=== PATIENT | male | born 1950 | race Caucasian/White ===

== ENCOUNTER 2016-05-08 22:59 | Inpatient (IN) | payer OTHER ==
[2016-05-08] MEDS ORDERED: DUONEB INH ONE ×3 (23:12)
[2016-05-09] VITALS (7 sets, daily range): BP systolic 157–181; RESP 18–24; TEMP 98.1–98.4; Wt 107.0 kg
[2016-05-09] MEDS ORDERED: ACETAMINOPHEN 325 MG TAB PO PRN (00:40)
[2016-05-09] MEDS ORDERED: ALU/MAG/SIM 30 ML UDC PO PRN (00:40)
[2016-05-09] MEDS ORDERED: BISACODYL 10 MG SUPP RECTAL PRN (00:40)
[2016-05-09] MEDS ORDERED: SALINE FLUSH 10 ML FLUSH PRN (00:40)
[2016-05-09] MEDS ORDERED: BISACODYL EC 5 MG TAB PO PRN (00:40)
[2016-05-09] MEDS ORDERED: MAG HYDROX 30 ML UDC PO PRN (00:40)
[2016-05-09] MEDS: LACT RINGERS 1,000 ML IV SCH ×2 (04:28→16:39)
[2016-05-09] MEDS: METHYLPRED SOD SUCC 125 MG/2 ML VIAL IV SCH ×4 (05:51→23:36)
[2016-05-09] MEDS: SODIUM CHLORIDE 0.9% FLUSH BAG 500 ML IV SCH (05:53)
[2016-05-09] MEDS: NEB-XOPENEX 1.25 MG/3 ML INH SCH ×5 (07:08→23:03)
[2016-05-09] MEDS: NEB-ATROVENT INH SCH ×5 (07:08→23:03)
[2016-05-09] MEDS: LEVOFLOXACIN 750 MG/150 ML 150 ML IV SCH (08:35)
[2016-05-09] MEDS: FAMOTIDINE 20 MG INJ IV SCH ×2 (08:35→21:56)
[2016-05-09] MEDS: SALINE FLUSH 10 ML FLUSH SCH ×2 (08:35→21:55)
[2016-05-09] MEDS: ENOXAPARIN 40 MG/0.4 ML SYR SUBQ SCH (08:36)
[2016-05-09] MEDS: BENZONATATE 100 MG CAP PO PRN ×2 (11:28→22:05)
[2016-05-09] MEDS: NEB-BROVANA 15 MCG/2 ML INH SCH ×2 (12:00→19:39)
[2016-05-09] MEDS: NEB-BUDESONIDE 0.5 MG INH SCH ×2 (12:00→19:39)
[2016-05-09] MEDS: GUAIFENESIN ER 600 MG TABCR PO SCH ×2 (12:45→21:58)
[2016-05-09] MEDS: BISOPROLOL 5 MG TAB PO SCH (12:45)
[2016-05-09] MEDS: NEB-NACL 3% 4 ML NEBU INH SCH ×2 (19:39→23:03)
[2016-05-09] MEDS: AZELASTINE NASAL 30 ML BTL NARE EACH SCH (21:00)
[2016-05-09] MEDS: FLUTICASONE 0.05% NA BTL NARE EACH SCH (21:53)
[2016-05-09] MEDS: MONTELUKAST 10 MG TAB PO SCH (21:57)
[2016-05-09] MEDS: CEPACOL LOZENGE PO PRN (22:05)
[2016-05-10] VITALS (8 sets, daily range): BP systolic 133–163; RESP 16–20; TEMP 97.5–99
[2016-05-10] MEDS: NEB-ATROVENT INH SCH ×6 (02:42→22:34)
[2016-05-10] MEDS: NEB-XOPENEX 1.25 MG/3 ML INH SCH ×6 (02:42→22:34)
[2016-05-10] MEDS: LACT RINGERS 1,000 ML IV SCH (03:39)
[2016-05-10] MEDS: METHYLPRED SOD SUCC 125 MG/2 ML VIAL IV SCH (05:53)
[2016-05-10] MEDS: SODIUM CHLORIDE 0.9% FLUSH BAG 500 ML IV SCH (05:53)
[2016-05-10] MEDS: NEB-NACL 3% 4 ML NEBU INH SCH ×4 (07:26→22:34)
[2016-05-10] MEDS: NEB-BROVANA 15 MCG/2 ML INH SCH ×2 (07:26→18:25)
[2016-05-10] MEDS: NEB-BUDESONIDE 0.5 MG INH SCH ×2 (07:26→18:26)
[2016-05-10] MEDS: FLUTICASONE 0.05% NA BTL NARE EACH SCH ×2 (08:43→20:30)
[2016-05-10] MEDS: AZELASTINE NASAL 30 ML BTL NARE EACH SCH ×2 (08:43→20:29)
[2016-05-10] MEDS: SALINE FLUSH 10 ML FLUSH SCH ×2 (08:44→20:32)
[2016-05-10] MEDS: LEVOFLOXACIN 750 MG/150 ML 150 ML IV SCH (08:44)
[2016-05-10] MEDS: FAMOTIDINE 20 MG INJ IV SCH ×2 (08:44→20:31)
[2016-05-10] MEDS: ENOXAPARIN 40 MG/0.4 ML SYR SUBQ SCH (08:44)
[2016-05-10] MEDS: GUAIFENESIN ER 600 MG TABCR PO SCH ×2 (08:45→20:31)
[2016-05-10] MEDS: BISOPROLOL 5 MG TAB PO SCH (08:46)
[2016-05-10] MEDS: CETIRIZINE 10 MG TAB PO SCH (08:46)
[2016-05-10] MEDS ORDERED: BISOPROLOL 5 MG TAB PO ONE (11:00)
[2016-05-10] MEDS ORDERED: MISSING DOSE XX ONE ×2 (11:45→13:10)
[2016-05-10] MEDS: CEPACOL LOZENGE PO PRN ×2 (13:14→20:31)
[2016-05-10] MEDS: BENZONATATE 100 MG CAP PO PRN ×2 (13:14→20:31)
[2016-05-10] MEDS: METHYLPRED SOD SUCC 40 MG VIAL IV SCH ×2 (16:39→23:42)
[2016-05-10] MEDS: MONTELUKAST 10 MG TAB PO SCH (20:31)
[2016-05-11] VITALS (9 sets, daily range): BP systolic 130–154; RESP 18–20; TEMP 97.5–98.5
[2016-05-11] MEDS: CEPACOL LOZENGE PO PRN ×2 (00:36→10:24)
[2016-05-11] MEDS: NEB-XOPENEX 1.25 MG/3 ML INH SCH ×6 (03:26→22:14)
[2016-05-11] MEDS: NEB-ATROVENT INH SCH ×6 (03:26→22:14)
[2016-05-11] MEDS: NEB-BROVANA 15 MCG/2 ML INH SCH ×2 (06:33→18:23)
[2016-05-11] MEDS: NEB-NACL 3% 4 ML NEBU INH SCH ×4 (06:34→22:14)
[2016-05-11] MEDS: NEB-BUDESONIDE 0.5 MG INH SCH ×2 (06:34→18:23)
[2016-05-11] MEDS ORDERED: MISSING DOSE XX ONE (07:35)
[2016-05-11] MEDS: FLUTICASONE 0.05% NA BTL NARE EACH SCH ×2 (09:17→20:49)
[2016-05-11] MEDS: SODIUM CHLORIDE 0.9% FLUSH BAG 500 ML IV SCH ×2 (09:17)
[2016-05-11] MEDS: AZELASTINE NASAL 30 ML BTL NARE EACH SCH ×2 (09:17→20:49)
[2016-05-11] MEDS: LEVOFLOXACIN 750 MG/150 ML 150 ML IV SCH (09:18)
[2016-05-11] MEDS: FAMOTIDINE 20 MG INJ IV SCH (09:19)
[2016-05-11] MEDS: METHYLPRED SOD SUCC 40 MG VIAL IV SCH ×2 (09:19→16:36)
[2016-05-11] MEDS: SALINE FLUSH 10 ML FLUSH SCH ×2 (09:19→20:51)
[2016-05-11] MEDS: ENOXAPARIN 40 MG/0.4 ML SYR SUBQ SCH (09:20)
[2016-05-11] MEDS: CETIRIZINE 10 MG TAB PO SCH (09:20)
[2016-05-11] MEDS: GUAIFENESIN ER 600 MG TABCR PO SCH ×2 (09:20→20:50)
[2016-05-11] MEDS: BISOPROLOL 5 MG TAB PO SCH (09:20)
[2016-05-11] MEDS: MONTELUKAST 10 MG TAB PO SCH (20:50)
[2016-05-11] MEDS: FAMOTIDINE 20 MG TAB PO SCH (20:50)
[2016-05-12] VITALS (7 sets, daily range): BP systolic 142–161; RESP 16–20; TEMP 97.7–98.2
[2016-05-12] MEDS: METHYLPRED SOD SUCC 40 MG VIAL IV SCH ×3 (00:26→15:23)
[2016-05-12] MEDS: NEB-ATROVENT INH SCH ×6 (02:18→23:25)
[2016-05-12] MEDS: NEB-XOPENEX 1.25 MG/3 ML INH SCH ×6 (02:18→23:25)
[2016-05-12] MEDS: SODIUM CHLORIDE 0.9% FLUSH BAG 500 ML IV SCH ×2 (05:58→05:59)
[2016-05-12] MEDS: NEB-BUDESONIDE 0.5 MG INH SCH ×2 (07:41→19:47)
[2016-05-12] MEDS: NEB-NACL 3% 4 ML NEBU INH SCH ×4 (07:41→23:30)
[2016-05-12] MEDS: NEB-BROVANA 15 MCG/2 ML INH SCH ×2 (07:41→19:47)
[2016-05-12] MEDS: FLUTICASONE 0.05% NA BTL NARE EACH SCH ×2 (08:00→19:32)
[2016-05-12] MEDS: AZELASTINE NASAL 30 ML BTL NARE EACH SCH ×2 (08:00→19:33)
[2016-05-12] MEDS: ENOXAPARIN 40 MG/0.4 ML SYR SUBQ SCH (08:00)
[2016-05-12] MEDS: BENZONATATE 100 MG CAP PO PRN (08:01)
[2016-05-12] MEDS: CETIRIZINE 10 MG TAB PO SCH (08:01)
[2016-05-12] MEDS: BISOPROLOL 5 MG TAB PO SCH (08:01)
[2016-05-12] MEDS: GUAIFENESIN ER 600 MG TABCR PO SCH ×2 (08:01→19:32)
[2016-05-12] MEDS: SALINE FLUSH 10 ML FLUSH SCH ×2 (08:01→19:33)
[2016-05-12] MEDS: FAMOTIDINE 20 MG TAB PO SCH ×2 (08:01→19:31)
[2016-05-12] MEDS: LEVOFLOXACIN 750 MG TAB PO SCH (08:01)
[2016-05-12] MEDS: MONTELUKAST 10 MG TAB PO SCH (19:31)
[2016-05-12] MEDS: CEPACOL LOZENGE PO PRN (19:33)
[2016-05-13] VITALS (9 sets, daily range): BP systolic 139–153; RESP 18–24; TEMP 97.6–98.4
[2016-05-13] MEDS: NEB-XOPENEX 1.25 MG/3 ML INH SCH ×6 (02:29→22:34)
[2016-05-13] MEDS: NEB-ATROVENT INH SCH ×6 (02:29→22:34)
[2016-05-13] MEDS: SODIUM CHLORIDE 0.9% FLUSH BAG 500 ML IV SCH ×2 (05:29)
[2016-05-13] MEDS: SALINE FLUSH 10 ML FLUSH SCH ×2 (07:04→21:04)
[2016-05-13] MEDS: NEB-NACL 3% 4 ML NEBU INH SCH ×4 (07:32→22:34)
[2016-05-13] MEDS: NEB-BUDESONIDE 0.5 MG INH SCH ×2 (07:32→19:04)
[2016-05-13] MEDS: NEB-BROVANA 15 MCG/2 ML INH SCH ×2 (07:32→19:04)
[2016-05-13] MEDS: ENOXAPARIN 40 MG/0.4 ML SYR SUBQ SCH (08:12)
[2016-05-13] MEDS: AZELASTINE NASAL 30 ML BTL NARE EACH SCH ×2 (08:12→21:04)
[2016-05-13] MEDS: FLUTICASONE 0.05% NA BTL NARE EACH SCH ×2 (08:12→21:04)
[2016-05-13] MEDS: FAMOTIDINE 20 MG TAB PO SCH ×2 (08:13→21:04)
[2016-05-13] MEDS: BENZONATATE 100 MG CAP PO PRN (08:13)
[2016-05-13] MEDS: CETIRIZINE 10 MG TAB PO SCH (08:13)
[2016-05-13] MEDS: GUAIFENESIN ER 600 MG TABCR PO SCH ×2 (08:13→21:04)
[2016-05-13] MEDS: PREDNISONE 50 MG TAB PO SCH (08:13)
[2016-05-13] MEDS: LEVOFLOXACIN 750 MG TAB PO SCH (08:13)
[2016-05-13] MEDS: BISOPROLOL 5 MG TAB PO SCH (08:13)
[2016-05-13] MEDS: MONTELUKAST 10 MG TAB PO SCH (21:04)
[2016-05-14] VITALS (11 sets, daily range): BP systolic 133–144; RESP 18–20; TEMP 98.3–98.4
[2016-05-14] MEDS: NEB-XOPENEX 1.25 MG/3 ML INH SCH ×4 (02:42→14:27)
[2016-05-14] MEDS: NEB-ATROVENT INH SCH ×4 (02:42→14:27)
[2016-05-14] MEDS: SODIUM CHLORIDE 0.9% FLUSH BAG 500 ML IV SCH ×2 (05:43)
[2016-05-14] MEDS: NEB-NACL 3% 4 ML NEBU INH SCH ×2 (06:28→10:51)
[2016-05-14] MEDS: NEB-BUDESONIDE 0.5 MG INH SCH (06:28)
[2016-05-14] MEDS: NEB-BROVANA 15 MCG/2 ML INH SCH (06:29)
[2016-05-14] MEDS: SALINE FLUSH 10 ML FLUSH SCH (07:54)
[2016-05-14] MEDS: FAMOTIDINE 20 MG TAB PO SCH (07:55)
[2016-05-14] MEDS: PREDNISONE 50 MG TAB PO SCH (07:55)
[2016-05-14] MEDS: GUAIFENESIN ER 600 MG TABCR PO SCH (07:55)
[2016-05-14] MEDS: LEVOFLOXACIN 750 MG TAB PO SCH (07:56)
[2016-05-14] MEDS: CETIRIZINE 10 MG TAB PO SCH (07:56)
[2016-05-14] MEDS: BISOPROLOL 5 MG TAB PO SCH (07:56)
[2016-05-14] MEDS: FLUTICASONE 0.05% NA BTL NARE EACH SCH (07:58)
[2016-05-14] MEDS: AZELASTINE NASAL 30 ML BTL NARE EACH SCH (07:58)
[2016-05-14] MEDS: ENOXAPARIN 40 MG/0.4 ML SYR SUBQ SCH (07:58)
[2016-05-14] MEDS: CEPACOL LOZENGE PO PRN (09:06)
== END 2016-05-14 16:51 | disposition home or self-care (01) | DRG 203 ==
LOC: ENRESERVTM → ENRESERV → ENRESERVDT → ER 22:59 → EMR 05-09 00:40 → ENPENDDIS 05-09 00:40 → PCU2 05-09 04:03 → 3NT 05-10 11:42
PROVIDERS: ADMIT Internal Medicine; ATTEND Internal Medicine
DX: J45.901 Unspecified asthma with (acute) exacerbation (principal); I10 Essential (primary) hypertension; J20.9 Acute bronchitis, unspecified; E66.9 Obesity, unspecified; Z68.35 Body mass index [BMI] 35.0-35.9, adult; R00.0 Tachycardia, unspecified; R04.0 Epistaxis; Z96.652 Presence of left artificial knee joint
CPT/HCPCS: 36415; 36600; 71010; 80048; 80051; 80053; 82330; 82553; 82785; 82803; 82947; 83036; 83880; 84484; 85025; 86003; 86606; 86612; 86635; 86698; 86738; 87071; 87804; 93005; 94640; 94667; 94668; 94799; 99223; 99232; 99233